=== PATIENT | female | born 1990 | race Caucasian/White ===

== ENCOUNTER 2017-05-14 21:04 | Emergency (ER) | payer SELFPAY ==
[~2017-05-14] VITALS: Ht 154.9 cm; Wt 63.0 kg
[~2017-05-14 21:04] MED LIST: 'KLONOPIN0.5 MG PO; ALBUTEROL0.09 MG/A2 IH; ALBUTEROL0.09 MG/A2 INH; ALLEGRA D 12 HO1 TER PO; ALLEGRA180 MG PO; AMOXICILLIN500 M1 PO; AMOXICILLIN500 M2 PO; AMOXICILLIN500 M3 PO; AMOXICILLIN500 MG PO; AMOXIL500 MG PO; ANAPROX DS550 MG PO; ANUSOL-HC25 MG RC; ATARAX,VISTARIL10 MG PO; AUGMENTIN 500 M1 TAB PO; BACTRIM DS 8001 TA1 PO; BIRTH CONTROL1 EAC1 PO; Bactrim 200 MG/30 ML PO; CATAFLAM50 MG PO; CELEXA20 MG PO; CELEXA40 MG PO; CEPHALEXIN500 M1 PO; CIPRO250 MG PO; CIPROFLOXACIN500 MG PO; CLEOCIN150 MG PO; CLINDAMYCIN HC300 MG PO; CLONAZEPAM0.5 M2 PO; COLACE100 MG; DIFLUCAN150 MG PO; DOXYCYCLINE HY100 M3 PO; DOXYCYCLINE100 M2 PO; FLAGYL500 MG PO; FLONASE0.05 MG/AC NS; GYNE-LOTRIMIN21 GM VG; HYDROCODONE BIT1 T11 PO; IRON325 M1 PO; LEVAQUIN750 MG PO; MACROBID100 M1 PO; MEDROL DOSEPAK4 MG PO; MELATONIN3 MG PO; METHERGINE0.2 MG; MOTRIN800 MG; MOTRIN800 MG PO; NAPROSYN250 MG PO; NAPROSYN500 MG PO; NICOTINE T21 MG/24 H T; NKHM; NORCO 325 MG-51 TAB PO; ONDANSETRON4 MG PO; PERCOCET 325 MG1 TA7; PHENERGAN25 M1 PO; PREDNICOT20 MG PO; PRENATAL1 TA3 PO; PRILOSEC OTC20 MG PO; PYRIDIUM100 MG PO; PYRIDIUM200 MG PO; Q-TUSSIN100 MG/5 M PO; ROBAXIN500 MG PO; ROBAXIN750 MG PO; ROBITUSSIN AC 110 ML PO; SERTRALINE50 MG PO; SINEMET 25-100M1 TAB PO; SUBOXONE 12 MG1 EACH SL; SUBOXONE 8 MG-21 TA2 SL; TESSALON PERLE100 M1 PO; TESSALON PERLE200 MG PO; THERA1 TAB PO; TRIMOX500 MG PO; VICO10300 PO; VICODIN 5/500 505 MG; VICODIN 5/500 505 MG PO; VICODIN 500 MG-1 TAB PO; XANAX0.25 MG PO; XANAX0.5 MG PO; ZITHROMAX Z PA250 MG PO; ZOFRAN ODT4 MG PO; ZOFRAN ODT4 MG SL; ZOFRAN4 MG PO; ZOLOFT100 MG PO; ZYRTEC10 M3 PO
[2017-05-14] MEDS ORDERED: BACTRIM DS 8001 TA1 PO (21:39)
[2017-05-14] MEDS ORDERED: NAPROSYN500 MG PO (21:39)
== END 2017-05-14 22:35 | disposition home or self-care (01) ==
LOC: ED 21:04
DX: L02.214 Cutaneous abscess of groin (principal); F17.200 Nicotine dependence, unspecified, uncomplicated; Z90.49 Acquired absence of other specified parts of digestive tract

== ENCOUNTER 2017-05-17 14:31 | Emergency (ER) | payer SELFPAY ==
[2017-05-17 15:02] LABS: BASO # 0.1 10*3/uL (0.0-0.1); BASO % 0.5 % (0.0-1.0); EOS # 0.1 10*3/uL (0.0-0.4); EOS % 1.1 % (1.0-4.0); HEMATOCRIT 38.5 % (37.0-47.0); HEMOGLOBIN 12.7 g/dl (12.0-16.0); IG # 0.1 10*3/uL (0.0-0.1); LYMPH % 17.6 % (27.0-41.0); MEAN CELL VOLUME 87.7 fl (81.0-99.0); MEAN CORPUSCULAR HGB 28.9 pg (27.0-31.0); MEAN PLATELET VOLUME 11.8 fl (9.6-12.3); MONO # 0.6 10*3/uL (0.1-1.0); MONO % 5.6 % (3.0-9.0); NEUT # 8.3 10*3/uL (2.3-7.9); NEUT % 74.7 % (47.0-73.0); PLATELET COUNT AUTOMATED 132 10*3/uL (130-400); RED BLOOD COUNT 4.39 10*6/uL (4.10-5.10); RED CELL DISTRI WIDTH 14.2 % (0-14.5); WHITE BLOOD COUNT 11.1 10*3/uL (4.8-10.8)
[2017-05-17 15:17] LABS: ALBUMIN 3.5 gm/dl (3.1-4.5); ALKALINE PHOSPHATASE 61 U/L (45-117); BILIRUBIN, TOTAL 0.5 mg/dl (0.2-1.0); BUN 11 mg/dl (7-24); CARBON DIOXIDE 26 mmol/L (21-32); CHLORIDE 103 mmol/L (98-107); EST GLOM FILT AFRICAN AMERICAN > 60 ml/min; GLUCOSE 102 mg/dL (65-99); POTASSIUM 3.2 mmol/L (3.5-5.1); SGOT/AST 8 IU/L (3-35); SGPT/ALT 15 U/L (12-78); SODIUM 138 mmol/L (136-145); TOTAL PROTEIN 8.2 gm/dL (6.4-8.2)
== END 2017-05-17 15:01 | disposition left against medical advice (07) ==
LOC: ED 14:31
PROVIDERS: Nurse Practitioner Family
DX: L02.214 Cutaneous abscess of groin (principal); Z90.49 Acquired absence of other specified parts of digestive tract